=== PATIENT | male | born 1965 | race Caucasian/White ===

== ENCOUNTER → 2019-01-29 14:36 | Outpatient (CLI) | payer BC ==
[2019-01-30 07:14] LABS: IMMUNOGLOBULIN A 393 mg/dL (90-386); IMMUNOGLOBULIN G 1154 mg/dL (700-1600)
[2019-01-31 12:10] LABS: IGG SUBCLASS 1 524 mg/dL (248-810); IGG SUBCLASS 2 462 mg/dL (130-555); IGG SUBCLASS 3 52 mg/dL (15-102); IGG SUBCLASS 4 5 mg/dL (2-96); IGGS - IGG SERUM 1192 mg/dL (700-1600)
== END | disposition home or self-care (01) ==
LOC: D.RT 14:36
PROVIDERS: ATTEND Internal Medicine Pulmonary Disease
DX: J44.9 Chronic obstructive pulmonary disease, unspecified (principal); J32.9 Chronic sinusitis, unspecified

== ENCOUNTER → 2019-02-04 17:36 | Outpatient (CLI) | payer BC ==
[2019-02-04 17:46] LABS: BASOPHILS 0.2 % (0-2); EOSINOPHILS 0.8 % (0-7); HEMOGLOBIN 15.3 g/dL (13.5-17.5); IMMATURE GRANULOCYTES 0.3 % (0-5); LYMPHOCYTES 28.6 % (15-50); MCH 32.3 pg (26.0-34.0); MCHC 35.6 g/dL (31.0-37.0); MCV 90.9 fL (80.0-100.0); MEAN PLATELET VOLUME 10.6 fL (7.4-10.4); MONOCYTES 9.2 % (2-11); NEUTROPHILS 60.9 % (40-80); PLATELET COUNT 222 10x3/uL (130-400); RBC 4.73 10x6/uL (4.20-6.10); WBC 9.6 10x3/uL (4.8-10.8)
== END | disposition home or self-care (01) ==
LOC: D.LABREF 17:36
PROVIDERS: ATTEND Internal Medicine Pulmonary Disease
DX: J45.909 Unspecified asthma, uncomplicated (principal)

== ENCOUNTER → 2019-03-12 12:54 | Outpatient (CLI) | payer BC ==
[2019-03-12 13:31] LABS: BASOPHILS 0.3 % (0-2); EOSINOPHILS 1.4 % (0-7); HEMATOCRIT 43.3 % (42.0-54.0); HEMOGLOBIN 15.1 g/dL (13.5-17.5); IMMATURE GRANULOCYTES 0.3 % (0-5); LYMPHOCYTES 26.4 % (15-50); MCH 31.7 pg (26.0-34.0); MCHC 34.9 g/dL (31.0-37.0); MCV 90.8 fL (80.0-100.0); MEAN PLATELET VOLUME 9.9 fL (7.4-10.4); MONOCYTES 10.5 % (2-11); NEUTROPHILS 61.1 % (40-80); PLATELET COUNT 198 10x3/uL (130-400); RBC 4.77 10x6/uL (4.20-6.10); RDW 12.6 % (11.5-14.5); WBC 9.6 10x3/uL (4.8-10.8)
== END | disposition home or self-care (01) ==
LOC: D.LAB 11:45 → D.CT 13:00
PROVIDERS: ATTEND Internal Medicine Pulmonary Disease
DX: J32.9 Chronic sinusitis, unspecified (principal); J45.909 Unspecified asthma, uncomplicated

== ENCOUNTER → 2020-10-15 08:05 | Outpatient (CLI) | payer BC | END | disposition home or self-care (01) | LOC: D.LAB 08:05 | PROVIDERS: ATTEND Internal Medicine Pulmonary Disease | DX: J45.909 Unspecified asthma, uncomplicated (principal); Z11.52 Encounter for screening for COVID-19 ==

== ENCOUNTER → 2020-10-18 07:19 | Outpatient (CLI) | payer BC | END | disposition home or self-care (01) | LOC: D.RT 08-05 08:00 | PROVIDERS: ATTEND Internal Medicine Pulmonary Disease | DX: J45.909 Unspecified asthma, uncomplicated (principal) ==